=== PATIENT | female | born 1955 | race Caucasian/White ===

== ENCOUNTER 2018-08-24 10:54 | Emergency (ER) | payer OTHER ==
--- NOTE | 2018-08-24 11:24 | UC ---
Throat Pain/Nasal Shon HPI - HPI Summary HPI Summary: 63 -year-old female with sore throat over the past 2 or 3 days. She had a grandson who recently had strep throat. He was already on antibiotics when she was caring for him. She also states she's had some fatigue which "feels like when I had pneumonia 2 years ago". She denies any fever or chills. She has a mild nonproductive cough. 2 years ago when she was diagnosed with pneumonia was not by a chest x-ray but rather a clinical pneumonia diagnosis. - History of Current Complaint Stated Complaint: ST,COUGH,SWOLLEN GLANDS Time Seen by Provider: 08/24/18 11:20 Hx Obtained From: Patient ?: No Onset/Duration: Gradual Onset Severity: Mild Cough: Nonproductive Associated Signs & Symptoms: Positive: Negative - Epiglottits Risk Factors Epiglottis Risk Factors: Negative - Allergies/Home Medications Allergies/Adverse Reactions: Allergies Allergy/AdvReac Type Severity Reaction Status Date / Time No Known Allergies Allergy Verified 08/24/18 11:25 Home Medications: Home Medications NK [No Home Medications Reported] 08/24/18 [History Confirmed 08/24/18] PMH/Surg Hx/FS Hx/Imm Hx Previously Healthy: Yes - Family History Known Family History: Positive: Non-Contributory - Social History Alcohol Use: None Substance Use Type: None Review of Systems All Other Systems Reviewed And Are Negative: Yes ENT: Positive: Sore Throat Respiratory: Positive: Cough - Non-Productive cough Is Patient Immunocompromised?: No Physical Exam Triage Information Reviewed: Yes Appearance: Well-Appearing, No Pain Distress, Well-Nourished Vital Signs Reviewed: Yes Eye Exam: Normal ENT: Positive: Pharyngeal erythema - . Minimal pharyngeal erythema, no exudate , uvula is midline, no trismus., TMs normal Neck: Positive: Supple, Nontender - Mild tonsillar lymph node enlargement bilaterally. Respiratory Exam: Normal Cardiovascular Exam: Normal Abdominal Exam: Normal Bowel Sounds: Positive: Present Musculoskeletal Exam: Normal Neurological Exam: Normal Psychological Exam: Normal Skin Exam: Normal Throat Pain/Nasal Course/Dx - Course Course Of Treatment: Rapid strep test was negative. Her CXR was negative. At this point in time I believe this is a viral pharyngitis. I did the CXR because pt states she was fatigued "like when I had Pneumonia" - Differential Dx/Diagnosis Differential Diagnosis/HQI/PQRI: URI Provider Diagnosis: Pharyngitis Discharge - Sign-Out/Discharge Documenting (check all that apply): Patient Departure All imaging exams completed and their final reports reviewed: Yes - Discharge Plan Condition: Good Disposition: HOME Patient Education Materials: Pharyngitis (ED) Referrals: Radha Samaniego MD [Primary Care Provider] - Additional Instructions: Increase fluids, throat lozenges, warm salt water gargles. Follow up with your Primary Care Provider in 4-5 days if no improvement. - Billing Disposition and Condition Condition: GOOD Disposition: Home - Attestation Statements Provider Attestation: Per institutional requirements, I have reviewed the chart, however, I was not consulted specifically or made aware of this patient by the midlevel provider. I did not personally evaluate, interact with , or disposition this patient
[2018-08-24 11:25] VITALS: BP 128/77
== END 2018-08-24 12:30 | disposition home or self-care (01) ==
LOC: UCCORT 10:54
DX: J02.9 Acute pharyngitis, unspecified (principal); R53.83 Other fatigue
CPT/HCPCS: 71046; 87651; 99201; G0463